=== PATIENT | female | born 1970 | race Asian ===

== ENCOUNTER 2018-08-02 10:19 | Day surgery (SDC) | payer OTHER ==
[~2018-08-02] VITALS: Ht 167.6 cm; Wt 77.6 kg
== END 2018-08-02 12:40 | disposition home or self-care (01) ==
LOC: OR 10:19
PROC: 3E0R33Z Introduction of Anti-inflammatory into Spinal Canal, Percutaneous Approach (ICD-10-PCS; principal; 2018-08-02)
PROC: B01BYZZ Fluoroscopy of Spinal Cord using Other Contrast (ICD-10-PCS; 2018-08-02)
DX: M50.123 Cervical disc disorder at C6-C7 level with radiculopathy (principal)
CPT/HCPCS: J1100; J2001

== ENCOUNTER 2018-08-29 08:45 | Day surgery (SDC) | payer OTHER | END 2018-08-29 10:45 | disposition home or self-care (01) | LOC: OR 08:45 | PROC: 3E0R33Z Introduction of Anti-inflammatory into Spinal Canal, Percutaneous Approach (ICD-10-PCS; principal; 2018-08-29) | PROC: B01BYZZ Fluoroscopy of Spinal Cord using Other Contrast (ICD-10-PCS; 2018-08-29) | DX: M50.123 Cervical disc disorder at C6-C7 level with radiculopathy (principal) | CPT/HCPCS: J1020 ==

== ENCOUNTER 2019-04-24 10:03 | Day surgery (SDC) | payer OTHER | END 2019-04-24 14:15 | disposition home or self-care (01) | LOC: OR 10:03 | PROC: 3E0R33Z Introduction of Anti-inflammatory into Spinal Canal, Percutaneous Approach (ICD-10-PCS; principal; 2019-04-24) | PROC: B01BYZZ Fluoroscopy of Spinal Cord using Other Contrast (ICD-10-PCS; 2019-04-24) | DX: M50.123 Cervical disc disorder at C6-C7 level with radiculopathy (principal); M50.122 Cervical disc disorder at C5-C6 level with radiculopathy | CPT/HCPCS: J1020; J2001 ==